=== PATIENT | male | born 1980 | race Caucasian/White ===

== ENCOUNTER 2024-02-25 17:05 | Emergency (ER) | payer SELFPAY ==
[~2024-02-25] VITALS: Ht 185.4 cm; Wt 86.2 kg
[2024-02-25 17:11] VITALS: BP_SYST 134; PULSE 117; RESP 18; TEMP 97.3; O2SAT 94
[2024-02-25] MEDS: HYDROcodone/ACETAMIN 5-325 MG TAB (NORCO/ VICODIN) PO ONE (17:40)
[2024-02-25 18:39] VITALS: BP_SYST 134; PULSE 117; RESP 18; TEMP 97.3; O2SAT 94
[2024-02-25] MEDS: ONDANSETRON HCL 4 MG/2 ML VIAL IVP ONE (19:01)
[2024-02-25] MEDS: MORPHINE 4 MG INJ. 4 MG/ML VIAL IVP ONE (19:01)
[2024-02-25] MEDS ORDERED: KETOROLAC TROMETHAMINE 30 MG VIAL IVP ONE (19:30)
[2024-02-25] MEDS: HYDROmorphone 1 MG/ML INJ. CARTRIDGE IVP ONE (19:32)
[2024-02-25] MEDS ORDERED: LIDOCAINE MPF 1% 50 MG/5 ML AMP INJ ONE (20:00)
[2024-02-25] MEDS ORDERED: AUG875 PO (20:05)
[2024-02-25] MEDS ORDERED: PERC10 PO (20:06)
[2024-02-25] MEDS ORDERED: IBUP-1969 PO (20:06)
[2024-02-25] MEDS ORDERED: BACITRACIN 1 GM OINT TP ONE (20:29)
== END 2024-02-25 20:31 | disposition home or self-care (01) ==
LOC: SED 17:05
DX: S60.132A Contusion of left middle finger with damage to nail, initial encounter (principal); Z88.1 Allergy status to other antibiotic agents; Z88.2 Allergy status to sulfonamides; Z88.5 Allergy status to narcotic agent; Z88.8 Allergy status to other drugs, medicaments and biological substances; Z79.899 Other long term (current) drug therapy; Z79.2 Long term (current) use of antibiotics; X58.XXXA Exposure to other specified factors, initial encounter; Y93.89 Activity, other specified; Y92.89 Other specified places as the place of occurrence of the external cause; Y99.8 Other external cause status
CPT/HCPCS: 99284; 96374; 96375; 73140; 11740; J2405; J1170; J2270; J2001